=== PATIENT | male | born 1985 | race Native Hawaiian/Other Pacific Islander ===

== ENCOUNTER 2018-03-09 21:13 | Emergency (ER) | payer OTHER ==
[2018-03-09 21:43] VITALS: RESP 18; TEMP 98.5
--- NOTE | 2018-03-09 21:48 | ED PDOC ---
Arrival/HPI - General Chief Complaint: Palpitations Time Seen by Provider: 03/09/18 21:26 Historian: Patient - History of Present Illness Narrative History of Present Illness (Text): 03/09/18 21:45 A 32 year old male, whose past medical history includes borderline hypertension , presents to the emergency department complaining of palpitations and feeling anxious. The patient notes that he drank a large cup of coffee and ate salty street food at a festival today. The patient denies fevers, chills, headache, dizziness, sore throat, cough, chest pain, shortness of breath, dyspnea on exertion, abdominal pain, nausea, vomiting, diarrhea, neck/back pain, urinary/ bowel changes, suicidal/homicidal ideation, auditory/visual hallucination, or any other complaint. Time/Duration: Other (Today) Symptom Onset: Sudden Symptom Course: Unchanged Activities at Onset: Rest, Light Context: Home Past Medical History - Provider Review Nursing Documentation Reviewed: Yes - Psychiatric Hx Psychophysiologic Disorder: No Hx Substance Use: No Family/Social History - Physician Review Nursing Documentation Reviewed: Yes Family/Social History: No Known Family HX Smoking Status: Never Smoked Hx Alcohol Use: No Frequency of alcohol use: Socially Hx Substance Use: No Allergies/Home Meds Allergies/Adverse Reactions: Allergies shrimp Allergy (Verified 03/09/18 21:20) ITCHING tree nut Allergy (Verified 03/09/18 21:20) ITCHING Review of Systems - Physician Review All systems were reviewed & negative as marked: Yes - Review of Systems Constitutional: absent: Fevers ENT: absent: Sore Throat Respiratory: absent: SOB, Cough Cardiovascular: Palpitations. absent: Chest Pain, INFANTE Gastrointestinal: absent: Abdominal Pain, Stool Changes, Diarrhea, Nausea, Vomiting Genitourinary Male: absent: Urinary Output Changes Musculoskeletal: absent: Back Pain, Neck Pain Neurological: absent: Headache, Dizziness Psychiatric: Anxiety Physical Exam Vital Signs Reviewed: Yes Vital Signs Temp Pulse Resp BP Pulse Ox 03/09/18 23:45 85 18 125/72 100 03/09/18 21:42 98.5 F 101 H 18 121/71 97 Temperature: Afebrile Blood Pressure: Normal Pulse: Tachycardic Respiratory Rate: Normal Appearance: Positive for: Well-Appearing, Non-Toxic, Comfortable Pain Distress: None Mental Status: Positive for: Alert and Oriented X 3 - Systems Exam Head: Present: Atraumatic, Normocephalic Pupils: Present: PERRL Extroacular Muscles: Present: EOMI Conjunctiva: Present: Normal Mouth: Present: Moist Mucous Membranes Neck: Present: Normal Range of Motion Respiratory/Chest: Present: Clear to Auscultation, Good Air Exchange. No: Respiratory Distress, Accessory Muscle Use Cardiovascular: Present: Regular Rate and Rhythm, Normal S1, S2. No: Murmurs Abdomen: No: Tenderness, Distention, Peritoneal Signs Back: Present: Normal Inspection Upper Extremity: Present: Normal Inspection. No: Cyanosis, Edema Lower Extremity: Present: Normal Inspection. No: Edema Neurological: Present: GCS=15, CN II-XII Intact, Speech Normal Skin: Present: Warm, Dry, Normal Color. No: Rashes Psychiatric: Present: Alert, Oriented x 3, Normal Insight, Normal Concentration Medical Decision Making ED Course and Treatment: 03/09/18 21:47 Impression: A 32 year old male presents to the emergency department with a complaint of palpitations and feeling anxious. Plan: -- EKG -- Chest X-ray -- Labs -- Reassess and disposition Progress Notes: 03/09/18 21:49 EKG: Ordered, reviewed, and independently interpreted the EKG. Rate : 105 BPM Rhythm : Sinus Tachycaria 03/09/18 23:02: Chest X-ray read and interpreted by me shows no acute process. 03/09/18 23:34 On reevaluation the patient feels better and is in no acute distress. I have discussed the results and plan with the patient, who expresses understanding. Patient given the opportunity to ask question, all questions were answered and there is agreement with the plan to discharge the patient home. Patient is stable for discharge. Patient was instructed to follow up with physician/clinic in 1-2 days or return if symptoms persist/worsen or new concerning symptoms arise. - Lab Interpretations Lab Results: 03/09/18 21:50 03/09/18 21:50 Lab Results 03/09/18 21:50: Thyroxine (T4) 9.0, TSH 3rd Generation 2.19 03/09/18 21:50: Sodium 141, Potassium 4.1, Chloride 103, Carbon Dioxide 25, Anion Gap 18, BUN 18, Creatinine 0.8, Est GFR ( Amer) > 60, Est GFR (Non- Af Amer) > 60, Random Glucose 103, Calcium 9.6, Total Bilirubin 0.5, AST 99 H, ALT 114 H, Alkaline Phosphatase 50, Lactate Dehydrogenase 754 H, Total Creatine Kinase 782 H, CK-MB (CK-2) 0.7, CK-MB (CK-2) % Cancelled, Troponin I < 0.01, Total Protein 8.5 H, Albumin 5.2 H, Globulin 3.3, Albumin/Globulin Ratio 1.6, Lipase 120 03/09/18 21:50: WBC 10.8, RBC 4.86, Hgb 14.8, Hct 42.8, MCV 88.1, MCH 30.5, MCHC 34.6, RDW 12.5, Plt Count 278, MPV 10.8, Gran % 65.9, Lymph % (Auto) 25.8, [place] % (Auto) 6.5 H, Eos % (Auto) 1.5, Baso % (Auto) 0.3, Gran # 7.12 H, Lymph # (Auto) 2.8, [place] # (Auto) 0.7 H, Eos # (Auto) 0.2, Baso # (Auto) 0.03 I have reviewed the lab results: Yes - RAD Interpretation Radiology Orders: 03/09/18 21:38 CHEST PORTABLE [RAD] Stat - EKG Interpretation Interpreted by ED Physician: Yes Type: 12 lead EKG GUANACO Risk Score for UA/NSTEMI - GUANACO Risk Score Age > 64: NO 3 or more CAD Risk Factors: NO Known CAD (Stenosis greater than 50%): NO Aspirin use in past 7 days: NO Severe Angina: NO EKG ST changes greater than 0.5mm: NO Positive Cardiac Marker: NO GUANACO Score: 0 % risk at 14 days of: all cause mortality, new or recurrent FL, or severe recurrent ischemia requiring urgen revascularization: 5% Wells Criteria for PE - Wells Criteria for Pulmonary Embolism Clinical Signs and Symptoms of DVT: No P.E is #1 Diagnosis, or Equally Likely: No Heart Rate >100: Yes Immobilization at least 3 days;Surgery previous 4 weeks: No Previous, objectively diagnosed PE or DVT: No Hemoptysis: No Malignancy w/treatment within 6 months, or palliative: No Total Score: 1.5 - Scribe Statement The provider has reviewed the documentation as recorded by the Tita Hayes Provider Scribe Attestation: All medical record entries made by the Scribe were at my direction and personally dictated by me. I have reviewed the chart and agree that the record accurately reflects my personal performance of the history, physical exam, medical decision making, and the department course for this patient. I have also personally directed, reviewed, and agree with the discharge instructions and disposition. Disposition/Present on Arrival - Present on Arrival Any Indicators Present on Arrival: No History of DVT/PE: No History of Uncontrolled Diabetes: No Urinary Catheter: No History of Decub. Ulcer: No History Surgical Site Infection Following: None - Disposition Have Diagnosis and Disposition been Completed?: Yes Diagnosis: Palpitations, Elevated LFTs Disposition: HOME/ ROUTINE Disposition Time: 23:30 Condition: GOOD Discharge Instructions (ExitCare): Palpitations Additional Instructions: follow up with your pmd regarding the elevated liver tests Referrals: Jason Blackmon MD [Primary Care Provider] - Follow up with primary Forms: [employer] ([place])
[2018-03-09 22:04] LABS: BASO # 0.03 K/mm3 (0.0-2.0); BASO % 0.3 % (0.0-3.0); EOS # 0.2 (0.0-0.7); EOS % 1.5 % (1.5-5.0); GRAN # 7.12 (1.4-6.5); GRAN % 65.9 % (50.0-68.0); HEMOGLOBIN 14.8 g/dL (14.0-18.0); LYMPH # 2.8 (1.2-3.4); LYMPH % 25.8 % (22.0-35.0); MEAN CELL VOLUME 88.1 fl (80.0-105.0); MEAN CORPUSCULAR HEMOGLOBIN 30.5 pg (25.0-35.0); MEAN CORPUSCULAR HGB CONC 34.6 g/dl (31.0-37.0); MEAN PLATELET VOLUME 10.8 fl (7.0-11.0); MONO # 0.7 (0.1-0.6); MONO % 6.5 % (1.0-6.0); RBC 4.86 10^6/uL (3.5-6.1); RED CELL DISTRIBUTION WIDTH 12.5 % (11.5-14.5); WHITE BLOOD COUNT 10.8 10^3/ul (4.5-11.0)
[2018-03-09 22:23] LABS: ALB/GLOB RATIO 1.6 (1.1-1.8); ALBUMIN 5.2 g/dL (3.0-4.8); ALT/SGPT 114 U/L (7-56); AST/SGOT 99 U/L (17-59); BLOOD UREA NITROGEN 18 mg/dL (7-21); CALCIUM 9.6 mg/dL (8.4-10.5); GFR NON-AFRICAN AMERICAN > 60
[2018-03-09 22:34] LABS: TROPONIN I < 0.01 ng/mL
[2018-03-09 22:47] LABS: CK-MB 0.7 ng/mL (0.0-3.6)
[2018-03-09 22:58] LABS: LIPASE 120 U/L (23-300)
[2018-03-10 00:33] VITALS: BP 125/72; PULSE 85; O2SAT 100
--- NOTE | 2018-03-10 10:02 | RAD ---
Date of service: 03/09/2018 HISTORY: palpitations COMPARISON: No prior. FINDINGS: LUNGS: No active pulmonary disease. PLEURA: No significant pleural effusion identified, no pneumothorax apparent. CARDIOVASCULAR: Normal. OSSEOUS STRUCTURES: No significant abnormalities. VISUALIZED UPPER ABDOMEN: Normal. OTHER FINDINGS: None. IMPRESSION: No active disease.
--- NOTE | 2018-03-10 12:11 | CARD ---
APPROVED REPORT Date of service: 03/09/2018 EKG Measurement Heart [id number] <Conclusion> Sinus tachycardia Cannot rule out Inferior infarct, age undetermined Abnormal ECG
== END 2018-03-09 23:45 | disposition home or self-care (01) ==
LOC: ED 21:13
DX: R00.2 Palpitations (principal); R79.89 Other specified abnormal findings of blood chemistry